=== PATIENT | male | born 1980 | race Caucasian/White ===

== ENCOUNTER 2018-10-27 08:23 | Emergency (ER) | payer BC, OTHER ==
[2018-10-27] MEDS: FLUORESCEIN STRIP LEFT EYE (09:10)
[2018-10-27] MEDS: TETRACAINE 0.5% 4 ML OPH LEFT EYE (09:10)
== END 2018-10-27 09:50 | disposition home or self-care (01) ==
LOC: FTE 08:23
DX: B30.9 Viral conjunctivitis, unspecified (principal)
CPT/HCPCS: 99283

== ENCOUNTER 2018-10-30 19:50 | Emergency (ER) | payer BC | END 2018-10-30 23:21 | disposition home or self-care (01) | LOC: FTE 19:50 | DX: H10.022 Other mucopurulent conjunctivitis, left eye (principal) | CPT/HCPCS: 99283 ==